=== PATIENT | female | born 1955 | race Native Hawaiian/Other Pacific Islander ===

== ENCOUNTER 2018-02-18 09:19 | Outpatient (CLI) | payer MEDICAID ==
--- NOTE | 2018-02-18 11:04 | Mammography Report ---
BILATERAL DIGITAL DIAGNOSTIC MAMMOGRAM with CAD and LEFT BREAST ULTRASOUND: 02/18/18 CLINICAL: Left breast pain and history of remote trauma to the left breast. COMPARISON:02/14/12 bilateral mammogram FINDINGS: Moderate bilateral residual heterogeneously dense retroareolar fibroglandular densities. The fibroglandular pattern is stable with a stable vague left central asymmetry on cc and exaggerated cc views. No mass, architectural distortion or suspicious calcifications. Ultrasound of the left breast (including all four quadrants and the retroareolar area) demonstrated normal fibroglandular and fatty structures. No mass, cyst or shadowing. IMPRESSION: Negative mammogram and negative left breast ultrasound. No explanation for left breast pain. BI-RADS CATEGORY: 1 -- Negative RECOMMENDATION: Clinical followup and routine mammographic screening in one year. COMMENT: Patient follow-up letters are generated by our [employer] application.
== END 2018-02-18 09:20 | disposition home or self-care (01) ==
LOC: SPVWC 09:19
PROVIDERS: ATTEND Obstetrics & Gynecology
DX: R92.8 Other abnormal and inconclusive findings on diagnostic imaging of breast (principal)
CPT/HCPCS: 77066

== ENCOUNTER 2020-08-19 13:53 | Outpatient (CLI) | payer MEDICAID ==
--- NOTE | 2020-08-19 20:31 | Ultrasound Report ---
ULTRASOUND THYROID INDICATION / CLINICAL INFORMATION: HYPOTHYROIDISM. COMPARISON: None available. FINDINGS: RIGHT LOBE: Size = 2.8 x 0.9 x 1.4 cm. The right thyroid lobe is diffusely heterogeneous without disc rete mass. LEFT LOBE: Size = 2.8 x 0.6 x 1.1 cm. The left thyroid lobe is diffusely heterogeneous and without di screte mass. ISTHMUS: 3 cm. NODULES: None No abnormal parathyroid gland identified. ADDITIONAL FINDINGS: None. IMPRESSION: 1. Thyroid gland is small and diffusely heterogeneous in appearance but without discrete mass. Signer Name: Awilda Red MD Signed: 08/19/2020 8:27 PM Workstation Name: [id number]
== END 2020-08-19 13:54 | disposition home or self-care (01) ==
LOC: US 13:53
PROVIDERS: ATTEND Internal Medicine
DX: E03.9 Hypothyroidism, unspecified (principal)
CPT/HCPCS: 76536